=== PATIENT | female | born 1955 | race Caucasian/White ===

== ENCOUNTER 2019-03-09 10:35 | Observation (INO) | payer OTHER, SELFPAY ==
[2019-03-09] VITALS (9 sets, daily range): BP systolic 139–147; BP diastolic 70–76; PULSE 54–77; RESP 14–22; TEMP 36.5–36.8; O2SAT 96–99; BMI 24.3; BMI 23.8
--- NOTE | 2019-03-09 11:07 | EKG12_ITS ---
Test Reason : CP Blood Pressure : / mmHG Vent. Rate : 059 BPM Atrial Rate : 059 BPM P-R Int : 126 ms QRS Dur : 104 ms QT Int : 438 ms P-R-T Axes : -08 012 038 degrees QTc Int : 433 ms Sinus bradycardia Incomplete right bundle branch block Borderline ECG Confirmed by ZEE VILLEGAS, CLINT ([id number]), visual effects editor MARTY PICKETT ([id number]) on 03/11/2019 9:34:27 AM Referred By: PADMAJA/NATHAN Confirmed By:GARRET KOCH MD
--- NOTE | 2019-03-09 11:08 | RAD_ITS ---
STUDY: X-RAY CHEST REASON FOR EXAM: Female, 63 years old. One week history of chest heaviness. TECHNIQUE: Single AP portable view of the chest. COMPARISON: None. FINDINGS: EKG electrodes are seen. The lungs are clear and expanded. There is no demonstrated pleural abnormality. Normal size heart. Normal mediastinum and cris. Normal visualized pulmonary arteries. Normal visualized aortic arch and descending thoracic aorta. There are degenerative changes of the visualized thoracic spine. Normal visualized ribs, clavicles, and shoulders. There is no demonstrated abnormality of the visualized soft tissue structures of the upper abdomen. RAD/Chest 1 View (Portable) IMPRESSION: Normal x-ray examination of the chest. Electronically Signed: Raúl Khoury, at 11:22 EST , Service support ,
[2019-03-09] MEDS: Aspirin 81 MG TAB.CHEW 324 MG PO (11:18)
[2019-03-09] MEDS: 0.9% Normal Saline 1,000 ML 150 ML IV (11:18)
[2019-03-09 11:23] LABS: Absolute Lymphocyte Count 2.26 X10^3/uL (0.83-4.51); Absolute Neutrophil Count 2.9 X10^3/uL (2.0-7.7); Basophil# 0.07 X10^3/uL; Basophil% 1.2 % (0-1); Eosinophil# 0.19 X10^3/uL; Eosinophils% 3.2 % (0-5); Hematocrit 43.3 % (37-47); Hemoglobin 14.2 g/dL (12.0-15.0); Lymphocyte # 2.26 X10^3/ul (4.0); Lymphocyte % 38.6 % (19-41); Mean Corp Hgb Conc 32.8 g/dL (32-36); Mean Corpuscular Hgb 29.2 pg (27.0-32.0); Mean Corpuscular Volume 89.1 fL (81-99); Mean Platelet Vol. 9.5 fl (6.2-12.0); Monocyte# 0.42 X10^3/uL; Monocyte% 7.2 % (0-10); NRBC Flagged by Analyzer 0 % (0-5); Neutrophil # 2.89 X10^3/uL (2.7-7.7); Neutrophil % 49.5 % (47-70); Platelet Count 285 K/mm3 (150-450); RBC Distribution Width CV 11.9 % (11.6-14.6); RBC Distribution Width SD 38.5 fl (35.1-43.9); Red Blood Count 4.86 M/mm3 (4.2-5.4); White Blood Count 5.9 K/mm3 (4.4-11.0)
[2019-03-09 11:48] LABS: Anion Gap 6 (5-15); BUN 18 mg/dL (7-18); BUN/Creat Ratio 19.3 RATIO (10-20); Calcium,Total 9.4 mg/dL (8.5-10.1); Chloride 107 mmol/L (98-107); Creatinine, Serum 0.93 mg/dL (0.55-1.02); EST Glomerular Filtration Rate 64 mL/min (>60); Est Glom Filt Rate - Afr Amer 77 mL/min (>60); Glucose 92 mg/dL (74-106); Magnesium 2.2 mg/dL (1.6-2.6); Potassium 4.3 mmol/L (3.5-5.1); Sodium Level 141 mmol/L (136-145); Thyroid Stim Hormone (TSH) 0.35 uIU/mL (0.358-3.74)
--- NOTE | 2019-03-09 11:59 | ED.DCSUM_ITS ---
- ER Visit Summary Date of Service: 03/09/19 Chief Complaint: Chest pain History of Present Illness: The patient is a [address] Homer Nguyen. She reports she has chest pain that began 6 days ago. Some intermittent heaviness lasts hours at a time. 5-10 at worst and 2 out of 10 currently. Is worsened by nothing including exertion movement or breathing. Is also relieved by nothing. There is no radiation. No associated nausea, vomiting, diaphoresis, shortness of breath. Patient has never had a stress test or heart catheterization. She has a family history is her only risk factor for coronary artery disease. Physical Examination: Vitals: Stable. Afebrile. General: Well-nourished and well-developed. Head: Normocephalic atraumatic. Neck: Supple, no lymphadenopathy. No JVD. Nontender. Cardiovascular: Regular rate and rhythm. No murmurs. Respiratory: No respiratory distress. Clear to auscultation bilaterally. Abdominal: Soft, nontender, nondistended, normal bowel sounds. No guarding, rebound, or peritoneal signs. Back: Nontender. Extremities: Nontender, no edema. Skin: Normal color, no rash. Neurologic: Alert and oriented ?3. Cranial nerves II through XII are intact. Normal strength and sensation. Psych: Normal affect. Test Results: EKG is sinus bradycardia at 59 with an incomplete right bundle branch block and nonspecific ST changes. There is no old EKG for comparison. Troponin is negative. Chem-7 and CBC are normal. Chest x-ray is normal. Emergency Department Course and Treatment: Patient was treated with aspirin. She is resting comfortably. Treatment Plan: Patient's heart score is 4. She will be admitted to the hospital for further evaluation and treatment. Disposition: Admitted in stable condition. Impression: 1. Chest pain. 2. VALDO score of 2. This note was generated with [employer] dictation software. It may contain incorrect words, spelling, and punctuation that were not noted in review of the chart prior to signing ED Disposition - Plan for ED Patient: Referrals: Indy Ibarra MD [Primary Care Provider] -
--- NOTE | 2019-03-09 12:16 | HP.PCM_ITS ---
Problem List (1) Chest pain Status: Acute Qualifiers: Chest pain type: unspecified Qualified Code(s): R07.9 - Chest pain, unspecified (2) Subclinical hypothyroidism Status: Acute History of Present Illness Date of Admission: 03/09/19 Chief Complaint: Chest pain The patient is a 63 y/o F w/ PMHx: Former Tobacco use who presents to the [facility] ED on 03/09/19 with history of onset of chest pain approximately x1 week, intermittent, described as heaviness/tightness in nature, lasting hours, rated 5-10 in severity at its worse with presentation to it of 10 in severity with no specific worsening factors nor alleviating factors without any radiation with no associated nausea, emesis, diaphoresis or dyspnea. Work-up in the ED includes T 98.1, heart rate 65, BP 139/76, respiratory rate 17, 99% on room air, CBC with WBC 5.9, hemoglobin 14.2, platelet 285 without evidence of left shift, unremarkable BMP, troponin less than 0.015, TSH 0.35 with free T4 obtained (0.76, subclinical), magnesium 2.2, chest x-ray with no acute cardiopulmonary findings, EKG with sinus bradycardia with heart rate 59 with an incomplete right bundle branch block and nonspecific ST changes with no comparison available. In the ED patient administered NS and ASA therapy. Following admission, discussed recent events with patient and she notes she was recently in [place] for a 01/27/19, recently traveled back but no specific recent LE pain or edema. Upon evaluation following transition from ED, noted discomfort 04/13. 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 Paternal History Items: - - Patient notes that her father was healthy with no history of heart disease, diabetes or cancer. Sibling History Items: - - Patient notes a sister with history of heart disease, CAD, [place] at age 64. Review of Systems Constitutional: Reports: Fatigue. Denies: Anorexia, Chills, Fever, Malaise, Weakness, Weight Change HEENT: Denies: Head Aches, Sinus Congestion, Sinus Drainage Cardiovascular: Reports: Chest Pain, Chest Pressure, Chest Tightness. Denies: Heaviness, Light Headedness, Orthopnea, Palpitations, Syncope Respiratory: Denies: Cough, Shortness of Breath, Shortness of breath at rest, Shortness of breath upon exertion, Sputum production Gastrointestinal: Denies: Abdominal Pain, Nausea, Vomiting Genitourinary: Denies: Dysuria Musculoskeletal: Denies: Joint Pain, Joint Tenderness Skin: Denies: Rash, Wounds Neurological: Denies: Numbness, Tingling, Focal weakness Psychiatric: Denies: Anxiety, Depression, Homicidal Ideations, Suicidal Ideations Hematologic/ Lymphatic: Denies: Easy Bruising, Easy Bleeding VTE Information - Inpt Only VTE Present on Admission: No VTE Mechan Device Prophylaxis: None VTE Pharm Prophylaxis ordered?: No Reason prophylaxis not ordered:: Treatment Not Indicated Patient Problems: Active and Suspected Problems Chest pain (Acute) Subclinical hypothyroidism (Acute) Subjective: Seated upright in the ED bed, no acute distress, notes chest tightness is improving, 1 out of 10 currently. Objective: Physical Examination: General: awake, alert, oriented x 3 and cooperative, seated upright in the PCU bed, no acute distress, notes chest tightness is improving. Skin: normal color, turgor, no icterus, cyanosis. HEENT: AT/NC, EOMI, PERRLA, MMM, no carotid bruits or JVD noted, mild chronic speech impediment noted. Lungs: CTA bilaterally, moderate effort, mild decrease BL bases, no rales, ronchi or wheezing. Heart: Regular rate and rhythm; no gallop, rub audible. Abdomen: soft, NTTP, ND, normal BS, no HSM. Extremities: no cyanosis, clubbing, or edema and no tenderness to palpation of the lower extremities given recent prolonged travel history. Neurological: patient awake, alert, oriented x 3; cognitive function intact; pupils equally reactive to light and accomodation; cranial nerves II-XII grossly normal, moving all 4 extremities, no focal deficits, strength mildly global decrease secondary to acute complaints. Psychiatric: affect appears normal, no acute evidence of depressive or anxiety feelings. - Physical Exam Vitals/I&O's: Vital Signs Temp Pulse Resp BP Pulse Ox 98.1 F 65 17 139/76 H 98 03/09/19 10:36 03/09/19 10:36 03/09/19 10:36 03/09/19 10:36 03/09/19 11:10 Oxygen Delivery Method Room Air Weight: 132 lb 11.492 oz Body Mass Index (BMI) 24.3 Laboratory Results 03/09/19 11:11: WBC 5.9, RBC 4.86, Hgb 14.2, Hct 43.3, MCV 89.1, MCH 29.2, MCHC 32.8, RDW Std Deviation 38.5, RDW Coeff of Jessy 11.9, Plt Count 285, MPV 9.5, Immature Gran % (Auto) 0.300, Neut % (Auto) 49.5, Lymph % (Auto) 38.6, [place] % (Auto) 7.2, Eos % (Auto) 3.2, Baso % (Auto) 1.2 H, Absolute Neuts (auto) 2.9, Absolute Lymphs (auto) 2.26, Nucleated RBC % 0 03/09/19 11:11: Sodium 141, Potassium 4.3, Chloride 107, Carbon Dioxide 28.0, Anion Gap 6, BUN 18, Creatinine 0.93, Estim Creat Clear Calc 47.70, Est GFR (MDRD) Af Amer 77, Est GFR (MDRD) Non-Af 64, BUN/Creatinine Ratio 19.3, Glucose 92, Calcium 9.4, Magnesium 2.2, Troponin I < 0.015, TSH 0.35 L Current Medications Sodium Chloride () 1,000 mls @ 150 mls/hr IV .Q6H40M [facility] Last Admin: 03/09/19 11:18 Dose: 150 mls/hr Documented by: Assessment/Plan All Active Problems Chest pain (Acute) Subclinical hypothyroidism (Acute) The patient is a 63 y/o F w/ PMHx: Former Tobacco use who presents to the [facility] ED on 03/09/19 with history of onset of chest pain approximately x1 week, intermittent, described as heaviness/tightness in nature, lasting hours, rated 5-10 in severity at its worse with presentation to it of 10 in severity with no specific worsening factors nor alleviating factors without any radiation with no associated nausea, emesis, diaphoresis or dyspnea. (1) Chest Pain: Work-up in the ED includes T 98.1, heart rate 65, BP 139/76, respiratory rate 17, 99% on room air, CBC with WBC 5.9, hemoglobin 14.2, platelet 285 without evidence of left shift, unremarkable BMP, troponin less than 0.015, TSH 0.35 with pending free T4, magnesium 2.2, chest x-ray with no acute cardiopulmonary findings, EKG with sinus bradycardia with heart rate 59 with an incomplete right bundle branch block and nonspecific ST changes with no comparison available. Will admit to PCU, place on a monitored bed to assure no acute myocardial infarction with serial cardiac enzymes and EKGs. If repeat cardiac enzymes and EKGs remain unchanged, stable will pursue a.m. cardiac stress testing. ASA, NG, morphine. Mag normal. FLP in AM. Given recent prolonged travel will obtain D-dimer, if + will obtain CTPA. If CTPA + would d/c stress and add ECHO. If CTPA - will proceed with AM stress testing as noted. (2) Abnormal TSH: TSH 0.35, obtained FT4 to further elucidate, 0.76, subclinical, recommend continued outpatient follow-up and repeat testing in 4-6 weeks with consideration regimen if appropriate. (3) Former Tobacco use: Encourage continued cessation. (4) DVT Prophylaxis: Given observation, low risk defer agent. Code Visit OBSV E&M: 44167 Observation care discharge
[2019-03-09 12:47] LABS: T4 Free Direct 0.76 ng/dL (0.76-1.46)
--- NOTE | 2019-03-09 13:20 | EKG12_ITS ---
Test Reason : CP Blood Pressure : / mmHG Vent. Rate : 051 BPM Atrial Rate : 051 BPM P-R Int : 136 ms QRS Dur : 110 ms QT Int : 488 ms P-R-T Axes : 051 051 072 degrees QTc Int : 449 ms Sinus bradycardia Incomplete right bundle branch block Borderline ECG No previous ECGs available Confirmed by ZEE VILLEGAS, CLINT ([id number]), non linear editor MARTY PICKETT ([id number]) on 03/11/2019 12:15:29 PM Referred By: BRANDON Confirmed By:GARRET KOCH MD
[2019-03-09 14:07] LABS: D-Dimer Quantitative (DVT/PE) < 0.27 FEU/ug/m (0.27-0.49)
[2019-03-10] MEDS: 0.9% Saline Lock 10 ML Syringe IV (00:01)
[2019-03-10] MEDS: 0.9% Normal Saline 1,000 ML 100 ML IV (00:01)
[2019-03-10 03:09] VITALS: PULSE 55
[2019-03-10 05:00] VITALS: BP 145/77; PULSE 55; RESP 12; TEMP 36.6; O2SAT 97
--- NOTE | 2019-03-10 05:55 | EKG12_ITS ---
Test Reason : Blood Pressure : / mmHG Vent. Rate : 051 BPM Atrial Rate : 051 BPM P-R Int : 142 ms QRS Dur : 102 ms QT Int : 470 ms P-R-T Axes : 002 032 062 degrees QTc Int : 433 ms Sinus bradycardia with sinus arrhythmia Otherwise normal ECG When compared with ECG of 09-MAR-2019 13:31, MANUAL COMPARISON REQUIRED, DATA IS UNCONFIRMED Confirmed by ZEE VILLEGAS, CLINT ([id number]), medical editor MARTY PICKETT ([id number]) on 03/11/2019 12:15:07 PM Referred By: Confirmed By:GARRET KOCH MD
[2019-03-10 06:01] LABS: Absolute Lymphocyte Count 2.58 X10^3/uL (0.83-4.51); Absolute Neutrophil Count 2.1 X10^3/uL (2.0-7.7); Basophil# 0.06 X10^3/uL; Basophil% 1.1 % (0-1); Eosinophil# 0.31 X10^3/uL; Eosinophils% 5.6 % (0-5); Hematocrit 40.5 % (37-47); Hemoglobin 13.1 g/dL (12.0-15.0); Lymphocyte # 2.58 X10^3/ul (4.0); Lymphocyte % 46.3 % (19-41); Mean Corp Hgb Conc 32.3 g/dL (32-36); Mean Corpuscular Hgb 29.1 pg (27.0-32.0); Mean Platelet Vol. 9.4 fl (6.2-12.0); Monocyte# 0.52 X10^3/uL; Monocyte% 9.3 % (0-10); NRBC Flagged by Analyzer 0 % (0-5); Neutrophil # 2.08 X10^3/uL (2.7-7.7); Neutrophil % 37.3 % (47-70); Platelet Count 243 K/mm3 (150-450); RBC Distribution Width SD 39.6 fl (35.1-43.9); White Blood Count 5.6 K/mm3 (4.4-11.0)
[2019-03-10] MEDS: Aspirin E.C. 81 MG Tablet PO (06:06)
[2019-03-10 06:19] LABS: Anion Gap 3 (5-15); BUN 21 mg/dL (7-18); BUN/Creat Ratio 21.1 RATIO (10-20); Calcium,Total 8.5 mg/dL (8.5-10.1); Chloride 111 mmol/L (98-107); Cholesterol 190 mg/dL (200); Creatinine, Serum 0.99 mg/dL (0.55-1.02); EST Glomerular Filtration Rate 59 mL/min (>60); Est Glom Filt Rate - Afr Amer 72 mL/min (>60); Estimated Creatinine Clearance 44.81 ml/min; Glucose 90 mg/dL (74-106); High Density Lipoprotein 63 mg/dL; Potassium 4.3 mmol/L (3.5-5.1); Sodium Level 141 mmol/L (136-145); Triglycerides 73 mg/dL; Very Low Density Lipoprotein 15 mg/dL (5-40)
[2019-03-10 07:37] VITALS: PULSE 62
[2019-03-10 08:00] VITALS: BP 134/70; PULSE 51; RESP 15; TEMP 36.6; O2SAT 98
--- NOTE | 2019-03-10 09:46 | PCM.DC ---
- Discharge Diagnoses Current Active Problems: Current Active and Chronic Problems (1) Chest pain, ACS ruled out, suspect non-cardiac etiology (2) Subclinical hypothyroidism (3) Elevated BP without HTN Diagnosis You will use the following diet at home:: Cardiac Your food should be the consistency of: Regular Your liquids should be the consistency of: Regular/Thin Discharge Activity: Return to Normal Activity May resume sexual activity in: No Restrictions Weight Bearing Status: Weight bearing as tolerated Call your doctor if you observe: Fever of 101 or Higher, Inability to urinate, Inability to have a bowel movement, Shortness of breath, Dizziness, Fainting spells, Chest pain, Uncontrolled pain Instructions: Common Thyroid Problems, CHEST PAIN, NonCardiac, CHEST PAIN, Uncertain Cause Additional Instructions: During the admission you had occasional elevated BP > 140 SBP, please follow-up with your primary care physician and if you remain elevated may consider initiation of hypertensive medication regimen. The chest pain you experienced is felt not from your heart. The stress test is negative and your heart squeezed normally. The monitor worker you wore showed no problem with the rhythm of your heart. Additionally, the cardiac enzyme series performed remained normal. Sometimes chest pain can come from a problem with the muscles or skeleton and/or associated with straining or doing some strenuous activity you do not normally perform. Generally Aleve or Motrin will help allieviate this discomfort if these medications are appropriate for you to take. Chest pain can also be associated with anxiety and with this you frequently have racing heart, trouble sleeping and irritability. It can also come from gastroesophageal reflux disease or heartburn. People who smoke experience increased heartburn because nicotine decreases the pressure in the lower esophageal sphincter and causes reflux. This type of discomfort is well treated with drinking a large glass of cold water which strips the acid out of the esophagus or taking Mylanta, Maalox or Pepto-Bismol. Other foods to avoid if you have reflux are chocolate, peppermint and calcium containing products such as Tums. During the admission your thyroid function was assessed with noted TSH 0.35 and follow-up free T4 normal level 0.76. We consider this subclinical hypothyroidism and recommend repeat thyroid function studies in 4-6 weeks per your primary care physician. Allergies/Adverse Reactions: Allergies No Known Allergies Allergy (Verified 03/09/19 10:36) Medications to take at Discharge Aspirin E.C. [Ecotrin] 81 mg PO DAILY@0800 tab 03/10/19 Primary Care Physician: Indy Ibarra MD [Primary Care Provider] - Please follow up with your Primary Care Physician in: Follow-up within 3-5 days to review admission. Test Results: Test results from this visit will be discussed in further detail at your follow-up appointment, if applicable. Proposed Discharge Date: 03/10/19
[2019-03-10 11:15] VITALS: PULSE 57
--- NOTE | 2019-03-10 12:13 | STRESSREP ---
Stress Test Report Date: 03/10/2019 Procedure: Exercise tolerance test/imaging study Indications: Chest discomfort Consent: Per the patient Procedure: The patient exercised on a Corey protocol for 9 minutes and 30 seconds achieving a peak heart rate of 148 bpm (95 % predicted maximal heart rate) with a peak blood pressure 184/82 mmHg and a peak MET capacity of 10.9 METs. The baseline ECG demonstrated normal sinus rhythm. The peak exercise ECG demonstrated no significant ischemic changes. EKG during recovery revealed no significant ischemic changes [There were no cardiac dysrhythmias pretest, during exercise, or recovery]. The functional capacity was considered excellent for age. There was [no complaint of chest discomfort during exercise or recovery]. The examination was discontinued secondary to fatigue. Impression: 1. Technically adequate (percent predicted maximal heart rate greater than 85%) exercise tolerance test 2. Stress test is negative for exercise-induced EKG changes of ischemia 3. The test test is negative for exercise-induced chest pain 4. Functional capacity is excellent for age 5. Nuclear images pending Myocardial perfusion imaging study: Technique: The patient was injected with 12 mCi of technetium 99m Cardiolite and subsequently rest SPECT Cardiolite nuclear imaging was obtained in the horizontal long, vertical long, and short axis views. The patient exercised on a Corey protocol. Please see above for details. The patient was injected with 36 mCi of technetium 99m Cardiolite and subsequently stress SPECT Cardiolite nuclear imaging was obtained in the horizontal long, vertical long, and short axis views. A gated Cardiolite study at peak stress was obtained. Interpretation: Rest and stress SPECT Cardiolite nuclear imaging status post realignment, normalization, and attenuation correction, demonstrates normal myocardial radioisotope uptake on stress and rest. The gated Cardiolite study demonstrates no significant regional wall motion abnormalities. The reported LVEF is 59 %. Impression: 1. There is no evidence of significant ischemia or infarction. 2. The gated Cardiolite study reports an LVEF of 59 %. This note was generated with [employer] software. It may contain incorrect words, spelling, and punctuation that were not noted in checking the note before signing.
--- NOTE | 2019-03-10 12:20 | PCM.DC.SUM ---
Discharge Date and Diagnosis - Problem List Patient Problems: Active and Suspected Problems Chest pain (Acute) Subclinical hypothyroidism (Acute) Date of Admission: 03/09/19 Date of Discharge: 03/10/19 - Primary Discharge Diagnosis Active and Suspected Problems (1) Chest pain, ACS ruled out, suspect non-cardiac etiology (2) Subclinical hypothyroidism (3) Elevated BP without HTN Diagnosis - Secondary Discharge Diagnosis No prior medical history Hospital Course and Treatment Imaging Results: 03/10/19 05:55 Nuclear Stress Test - Treadmil [NM] AM (NON MEDS) Operations: None Procedures: EKG, Stress test Summary of Care Provided: The patient is a 63 y/o F w/ PMHx: Former Tobacco use who presented to the [facility] ED on 03/09/19 with history of onset of chest pain approximately x1 week, intermittent, described as heaviness/tightness in nature, lasting hours, rated 5-10 in severity at its worse with presentation to it of 10 in severity with no specific worsening factors nor alleviating factors without any radiation with no associated nausea, emesis, diaphoresis or dyspnea. Work-up in the ED includes T 98.1, heart rate 65, BP 139/76, respiratory rate 17, 99% on room air, CBC with WBC 5.9, hemoglobin 14.2, platelet 285 without evidence of left shift, unremarkable BMP, troponin less than 0.015, TSH 0.35 with free T4 obtained (0.76, subclinical), magnesium 2.2, chest x-ray with no acute cardiopulmonary findings, EKG with sinus bradycardia with heart rate 59 with an incomplete right bundle branch block and nonspecific ST changes with no comparison available. In the ED patient administered NS and ASA therapy. Following admission, discussed recent events with patient and she notes she was recently in [place] for a 01/27/19, recently traveled back but no specific recent LE pain or edema. Upon evaluation following transition from ED, noted discomfort 04/13. The patient is admitted to the PCU, placed on a monitored bed to assure no acute myocardial infarction with serial cardiac enzymes and EKGs which remained unremarkable. D-dimer was obtained given patient history upon admission noting prolonged travel from [facility] and was unremarkable. Given unremarkable cardiac enzymes, repeat EKG similar cardiac stress testing performed 03/10/2019 and was noted to be unremarkable for ischemia. During admission did note very mild elevation of patient blood pressure with recommendation to repeat assessment outpatient with primary care physician and if remained above goal to initiate regimen therapy to which she was amenable. Recommended patient continue low-dose baby aspirin therapy. During admission patient's TSH was obtained and noted to be 0.35, follow-up free T4 normal with recommendation for continued outpatient assessment for PCP in 4 to 6 weeks given subclinical. Patient with no recurrent chest discomfort and remained clinically stable with unremarkable stress testing as noted therefore discharged home in stable condition with recommended follow-up with PCP within 3 to 5 days. DAY OF DISCHARGE PROGRESS NOTE: Subjective: Patient without acute event overnight per self and nursing report. Patient notes feeling well and denies any recurrent chest discomfort. She is very eager for discharge and discussed pending stress testing results. Also reviewed patient's thyroid function studies and recommended follow-up testing outpatient. Discussed also her mild blood pressure elevations on 2 separate days now with recommendation per discussions to follow-up with primary care physician and if ongoing mild elevations initiation of hypertensive regimen. Patient denies fever, chills, nausea, emesis, abdominal pain. Patient agreeable to discharge to home. Patient will be discharged with follow-up with primary care physician within 3-5 days. Objective: T 97.9, heart rate 51, BP 134/70, respiratory rate 15, 98% on room air. Physical Examination: General: awake, alert, oriented x 3 and cooperative, seated upright in the PCU bed, no acute distress, no further chest discomfort or tightness. Skin: normal color, turgor, no icterus, cyanosis. HEENT: AT/NC, EOMI, PERRLA, MMM, no carotid bruits or JVD noted, mild chronic speech impediment noted. Lungs: CTA bilaterally, moderate effort, mild decrease BL bases, no rales, ronchi or wheezing. Heart: Regular rate and rhythm; no gallop, rub audible. Abdomen: soft, NTTP, ND, normal BS. Extremities: no cyanosis, clubbing, or edema. Neurological: patient awake, alert, oriented x 3; cognitive function intact; pupils equally reactive to light and accomodation; cranial nerves II-XII grossly normal, moving all 4 extremities, no focal deficits, strength preserved. Psychiatric: affect appears normal, anxious to leave, no acute evidence of depressive or anxiety feelings. Assessment and Plan: Please see hospital summary above. Patient Problems: Active and Suspected Problems Chest pain (Acute) Subclinical hypothyroidism (Acute) - Physical Exam Vitals/I&O's: Vital Signs Temp Pulse Resp BP Pulse Ox 97.9 F 57 L 15 134/70 H 98 03/10/19 08:00 03/10/19 11:15 03/10/19 08:00 03/10/19 08:00 03/10/19 08:00 Oxygen Delivery Method Room Air Weight: 130 lb Body Mass Index (BMI) 23.8 Intake and Output for Last 24 Hours 03/08/19 03/09/19 03/10/19 23:59 23:59 23:59 Intake Total 1175 / 1175 1260 / 1260 Balance 1175 / 1175 1260 / 1260 Laboratory Results 03/09/19 11:11: Free T4 0.76 03/09/19 11:11: D-Dimer Quant (PE/DVT) < 0.27 L 03/09/19 14:10: Troponin I < 0.015 03/09/19 17:16: Troponin I < 0.015 03/10/19 05:48: WBC 5.6, RBC 4.50, Hgb 13.1, Hct 40.5, MCV 90.0, MCH 29.1, MCHC 32.3, RDW Std Deviation 39.6, RDW Coeff of Jessy 12.0, Plt Count 243, MPV 9.4, Immature Gran % (Auto) 0.400, Neut % (Auto) 37.3 L, Lymph % (Auto) 46.3 H, [place] % (Auto) 9.3, Eos % (Auto) 5.6 H, Baso % (Auto) 1.1 H, Absolute Neuts (auto) 2.1, Absolute Lymphs (auto) 2.58, Nucleated RBC % 0 03/10/19 05:48: Sodium 141, Potassium 4.3, Chloride 111 H, Carbon Dioxide 27.0, Anion Gap 3 L, BUN 21 H, Creatinine 0.99, Estim Creat Clear Calc 44.81, Est GFR (MDRD) Af Amer 72, Est GFR (MDRD) Non-Af 59 L, BUN/Creatinine Ratio 21.1 H, Glucose 90, Calcium 8.5, Triglycerides 73, Cholesterol 190, LDL Cholesterol 112, VLDL Cholesterol 15, HDL Cholesterol 63 Current Medications Acetaminophen (Tylenol) 650 mg PO Q6H PRN PRN PRN Reason: Non-cardiac pain (mod-severe) Hydrocodone Bitart/Acetaminophen ([place] 5mg-325mg) 1 - 2 tablet PO Q4H PRN PRN PRN Reason: Pain Score 4-10/10 Al Hydroxide/Mg Hydroxide (Mylanta Ii) 15 - 30 ml PO Q4H PRN PRN PRN Reason: INDIGESTION Albuterol Sulfate (Ventolin Aerosols) 2.5 mg INHALATION Q2H PRN PRN PRN Reason: dyspnea, wheezing Aspirin (Ecotrin) 81 mg PO DAILY@0800 [facility] Last Admin: 03/10/19 06:06 Dose: 81 mg Documented by: Dextrose (D50w Syringe) 0 gm IV X1 PRN; Protocol PRN Reason: Hypoglycemia Famotidine (Pepcid) 20 mg PO BID [facility] Last Admin: 03/10/19 10:36 Dose: Not Given Documented by: Glucagon () 1 mg IM .X1 PRN PRN Reason: Hypoglycemia Guaifenesin (Robitussin) 20 ml PO Q4H PRN PRN PRN Reason: COUGH Hydralazine HCl (Apresoline Iv) 10 mg IV Q4H PRN PRN PRN Reason: SBP > 160 Sodium Chloride () 1,000 mls @ 100 mls/hr IV .Q10H [facility] Last Admin: 03/10/19 11:45 Dose: Not Given Documented by: Sodium Chloride () 250 mls @ 15 mls/hr IV .[id number] PRN PRN Reason: Saline Flush Magnesium Hydroxide (Milk Of Magnesia) 30 ml PO DAILY PRN PRN Reason: Constipation Morphine Sulfate () 1 - 2 mg IV Q4H PRN PRN PRN Reason: Pain Score 1-10/10 Nitroglycerin (Nitrostat) 0.4 mg SUBLINGUAL Q5M PRN PRN Reason: CARDIAC/CHEST PAIN Ondansetron HCl (Zofran) 4 mg IV Q8H PRN PRN PRN Reason: NAUSEA/VOMITING Sodium Chloride () 10 - 40 ml IV UD PRN PRN Reason: SALINE FLUSH Last Admin: 03/10/19 00:01 Dose: 10 ml Documented by: Temazepam (Restoril) 15 mg PO QHS PRN PRN PRN Reason: INSOMNIA Throat Lozenges (Cepacol Sore Throat Lozenge) 1 lozenge MUCOUS MEM Q2H PRN PRN PRN Reason: Sore Throat/Cough Discharge Activity: Return to Normal Activity May resume sexual activity in: No Restrictions Weight Bearing Status: Weight bearing as tolerated Call your doctor if you observe: Fever of 101 or Higher, Inability to urinate, Inability to have a bowel movement, Shortness of breath, Dizziness, Fainting spells, Chest pain, Uncontrolled pain Home Medications: Medications to take at Discharge Aspirin E.C. [Ecotrin] 81 mg PO DAILY@0800 tab 03/10/19 Primary Care Physician: Indy Ibarra MD [Primary Care Provider] - Please follow up with your Primary Care Physician in: Follow-up within 3-5 days to review admission. Patient Instructions: Common Thyroid Problems, CHEST PAIN, NonCardiac, CHEST PAIN, Uncertain Cause Disposition: Home Minutes spent on discharge:: 35 Patient Condition:: Fair Medical Necessity - Tobacco Use Smoking Status: Never smoker Tobacco Use: Non-smoker Meaningful Use Info Meaningful Use Diagnoses (Choose all that apply): None applicable Code Visit OBSV E&M: 08595 Observation care discharge
[2019-03-10 12:50] VITALS: BP 146/83; PULSE 59; RESP 18; TEMP 36.6; O2SAT 99
== END 2019-03-10 09:47 | disposition home or self-care (01) ==
LOC: ED 11:40 → PCU 12:58
PROVIDERS: Internal Medicine; Admitting Provider Family Medicine; Emergency Provider Emergency Medicine; Family Provider Family Medicine; PCP Family Medicine; Visit Provider Family Medicine
DX: R07.89 Other chest pain (principal); E03.9 Hypothyroidism, unspecified; R03.0 Elevated blood-pressure reading, without diagnosis of hypertension; I25.10 Atherosclerotic heart disease of native coronary artery without angina pectoris; Z87.891 Personal history of nicotine dependence; R00.1 Bradycardia, unspecified; I45.19 Other right bundle-branch block
CPT/HCPCS: 36415; 71045; 78452; 80048; 80061; 83735; 84439; 84443; 84484; 85025; 85379; 93005; 93017; 96360; 96361; 99218; 99285; A9500; J7030; A4216; G0378